=== PATIENT | female | born 1960 | race Caucasian/White ===

== ENCOUNTER 2020-08-24 16:13 | Emergency (ER) | payer SELFPAY ==
[~2020-08-24] VITALS: Ht 157.5 cm; Wt 59.0 kg
--- NOTE | 2020-08-24 16:13 | NUR ---
PAtient brought in by [facility] [id number] for syncope, B/P noted at 142/54
--- NOTE | 2020-08-24 16:30 | NUR ---
at bedside for assessment
--- NOTE | 2020-08-24 16:40 | NUR ---
Pt came in with NS100 ml bolus in process with 700ml remaining, 1000ml bolus complete (as ordered by ).IV removed. Catheter intact and site benign. Pressure and 4x4 gauze applied to site. No bleeding noted.
--- NOTE | 2020-08-24 16:44 | NUR ---
Patient discharged to home in stable condition. No signs of acute distress. took all belongings. Written and verbal after care instructions given. Patient verbalizes understanding of instructions. Stressed follow up or return to ER for worsening s/s.
--- NOTE | 2020-08-24 16:44 | NUR ---
Patientnoted standing and walking, wishes to go home, vitals are stable
[2020-08-24 16:47] VITALS: BP 132/67
== END 2020-08-24 16:48 | disposition home or self-care (01) ==
LOC: ER 16:33
DX: R55 Syncope and collapse (principal); I95.9 Hypotension, unspecified; R00.1 Bradycardia, unspecified
CPT/HCPCS: 93005; A4663